=== PATIENT | male | born 1990 | race Caucasian/White ===

== ENCOUNTER 2021-04-06 22:57 | Inpatient (IN) | payer BC ==
[~2021-04-06] VITALS: Ht 177.8 cm; Wt 170.0 kg
[2021-04-07] MEDS ORDERED: diphenhydrAMINE 50MG/ML VIAL (J1200) IM ONE ×2 (00:05→19:15)
[2021-04-07] MEDS ORDERED: HALOPERIDOL 5MG/ML VIAL (J1630 PER 1) IM ONE ×2 (00:05→19:15)
[2021-04-07] MEDS ORDERED: LORazepam 2 MG/ML VIAL IM ONE ×2 (00:05→19:15)
[2021-04-07 00:22] LABS: HEMATOCRIT 43.9 % (42.0-52.0); HEMOGLOBIN 13.8 g/dl (13.5-17.5); MEAN CORPUSCULAR HEMOGLOBIN 26.6 pg (27.0-33.0); MEAN CORPUSCULAR HGB CONC 31.4 g/dl (32.0-36.5); MEAN CORPUSCULAR VOLUME 84.7 fl (80.0-96.0); PLATELET COUNT, AUTOMATED 336 10^3/uL (150-450); RED BLOOD COUNT 5.18 10^6/uL (4.30-6.10); WHITE BLOOD COUNT 8.8 10^3/uL (4.0-10.0)
[2021-04-07 01:01] LABS: ACETAMINOPHEN LEVEL < 2.0 UG/ML (10.0-30.0); ALBUMIN 3.7 GM/DL (3.2-5.2); ALT/SGPT 24 U/L (12-78); BILIRUBIN,DIRECT < 0.1 MG/DL (0.0-0.2); BILIRUBIN,TOTAL 0.2 MG/DL (0.2-1.0); BLOOD UREA NITROGEN 14 MG/DL (7-18); CALCIUM LEVEL 8.6 MG/DL (8.5-10.1); CARBON DIOXIDE LEVEL 29 MEQ/L (21-32); CHLORIDE LEVEL 106 MEQ/L (98-107); CREATININE FOR GFR 1.06 MG/DL (0.70-1.30); ETHYL ALCOHOL (ETHANOL) < 0.003 % (0.000-0.010); GLOMERULAR FILTRATION RATE > 60.0 (>60); GLUCOSE, FASTING 84 MG/DL (70-100); POTASSIUM SERUM 3.3 MEQ/L (3.5-5.1); SALICYLATE LEVEL 2.4 MG/DL (5.0-30.0); SODIUM LEVEL 142 MEQ/L (136-145); TOTAL PROTEIN 6.7 GM/DL (6.4-8.2)
[2021-04-07 02:00] LABS: AMPHETAMINES LEVEL URINE POSITIVE (NEGATIVE); BARBITURATES URINE NEGATIVE (NEGATIVE); BENZODIAZEPINES URINE NEGATIVE (NEGATIVE); CANNABINOIDS URINE POSITIVE (NEGATIVE); COCAINE METABOLITE URINE NEGATIVE (NEGATIVE); METHADONE URINE NEGATIVE (NEGATIVE); OPIATES URINE NEGATIVE (NEGATIVE); PHENCYCLIDINE URINE NEGATIVE (NEGATIVE)
[2021-04-07] MEDS ORDERED: HOME MED LIST COMPLETE! XX SCH (03:20)
[2021-04-08 12:28] LABS: RSV AMPLIFICATION NEGATIVE (NEGATIVE)
[2021-04-08] MEDS ORDERED: MAALOX 30 ML SUSP *UDC PO PRN (13:40)
[2021-04-08] MEDS ORDERED: traZODone 50 MG TAB PO PRN (13:40)
[2021-04-08] MEDS ORDERED: ACETAMINOPHEN TAB 650MG DOSE (2X325MG) PO PRN (13:40)
[2021-04-08] MEDS ORDERED: MOM 30ML SUSPENSION UDC PO PRN (13:40)
[2021-04-08 15:08] VITALS: BP 112/68
[2021-04-08] MEDS ORDERED: LORazepam 2 MG/ML VIAL IM STA (15:24)
[2021-04-08] MEDS ORDERED: diphenhydrAMINE 50MG/ML VIAL (J1200) IM STA (15:24)
[2021-04-08] MEDS ORDERED: HALOPERIDOL 5MG/ML VIAL (J1630 PER 1) IM STA (15:24)
[2021-04-08] MEDS ORDERED: haloperidoL 5 MG TAB PO PRN (16:05)
[2021-04-08] MEDS ORDERED: LORazepam 2 MG TAB PO PRN (16:05)
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
--- NOTE | 2021-04-09 10:56 | HPEPDOC ---
[facility] Medical History & Physical Date of Admission Apr 09, 2021 Date of Service: Apr 09, 2021 History and Physical Chief complaint: Who presented to the ER with suicidal thoughts History of present illness: Patient is a 30-year-old male who presented to the emergency room with complaints of suicidal thoughts. Patient was admitted to the inpatient mental health unit under the care of psychiatry. Hospitalist service was consulted for medical screening evaluation. Patient was seen and examined in his room with nursing staff. Patient denied any headache, nausea, vomiting, chest pain, shortness of breath, palpitations, cough, abdominal pain, constipation, diarrhea, or urinary discomfort. Reports that his appetite is fairly normal. Past Medical History: Denies any prior medical history Past Surgical History: Denies any prior surgical history Allergies: See below Medications: See below Family History: - No history of malignancies Social History: - Denies the use of alcohol; patient was that he is an active smoker. Reports that he has used drugs in the past - Denies recent travel or sick contacts Review of Systems: 10 point review of systems complete, all negative otherwise stated in HPI Physical exam: - Vitals: BP [112/68], HR [66], RR [16], Sat [98%RA], Temp [98.7F] - General: Lying in bed, Speaking in full sentences, AAOx3 - HEENT: NC, AT, PERRLA, EOMI - CVS: RRR, +S1S2 - Lungs: Fair air entry bilaterally, No appreciable wheezing / rales / rhonchi - Abdomen: Soft, Non-distended, Non-tender - Extremities: No lower extremity edema, No calf tenderness - Neuro: No focal motor or sensory deficit - Skin: No visible rashes Labs: See below Imaging: See below EKG: See below Assessment and Plan: Suicidal ideation - Patient was admitted to the inpatient mental health unit under the care of psychiatry - Currently being managed by psychiatry Hypokalemia - Will supplement No significant past medical history DVT prophylaxis - Will continue with early ambulation Female district ranger was present throughout the duration of this history and physical examination Thank you for this consultation. Hospitalist service will now sign off; please reconsult as needed Vital Signs Vital Signs Date Time Temp Pulse Resp B/P (MAP) Pulse Ox O2 Delivery O2 Flow Rate FiO2 04/08/21 15:08 98.7 66 16 112/68 (83) 98 Room Air Laboratory Data Labs 24H Laboratory Tests 2 04/08/21 11:07: Coronavirus (COVID-19)(PCR) NEGATIVE, Influenza Type A (RT-PCR) NEGATIVE, Influenza Type B (RT-PCR) NEGATIVE, Respiratory Syncytial Virus (PCR) NEGATIVE Home Medications No Active Prescriptions or Reported Meds Allergies Coded Allergies: No Known Allergies (Unverified , 04/07/21) YUKI RAMIREZ MD Apr 09, 2021 10:56
[2021-04-09] MEDS ORDERED: POTASSIUM CHLORIDE 10MEQ SR TABLET PO ONE (11:00)
[2021-04-09] MEDS ORDERED: NICO1DIS12 TOP (11:56)
--- NOTE | 2021-04-09 12:06 | MHPR ---
General Date: Apr 09, 2021 Time: 10:00 Post-Restraint Evaluation THE OUTCOME OF THE RESTRAINT: Patient calm and lying in bed. EFFECTIVENESS OF THE RESTRAINT: Mechanical and/or chemical: Positive ANY EVIDENCE THAT THE PATIENT WAS AFFECTED EMOTIONALLY: None indicated ANY NEED FOR COUNSELING/ASSISTANCE: None at this time CHANGES IN TREATMENT PLAN: Patient being seen with multiple staff present to ensure safety, as has been more calm today RECOMMENDATIONS FOR FUTURE INCIDENTS: Offer as needed's earlier TONI COLES MD Apr 09, 2021 12:06
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
== END 2021-04-09 17:27 | disposition home or self-care (01) | DRG 755 ==
LOC: M ED 22:57 → M ED INP 04-08 13:39 → M PSY 04-08 15:23
PROVIDERS: ADMIT Student in an Organized Health Care Education/Training Program; ATTEND Student in an Organized Health Care Education/Training Program
DX: F43.20 Adjustment disorder, unspecified (principal); R45.851 Suicidal ideations; F12.90 Cannabis use, unspecified, uncomplicated; F15.90 Other stimulant use, unspecified, uncomplicated; F17.200 Nicotine dependence, unspecified, uncomplicated; Z59.00 Homelessness unspecified; E87.6 Hypokalemia

== ENCOUNTER 2021-04-13 17:46 | Emergency (ER) | payer BC, OTHER ==
[~2021-04-13] VITALS: Ht 177.8 cm; Wt 70.5 kg
[~2021-04-13 17:46] MED LIST: NICO1DIS12 TOP
[2021-04-13 18:19] LABS: HEMATOCRIT 40.7 % (42.0-52.0); HEMOGLOBIN 12.8 g/dl (13.5-17.5); MEAN CORPUSCULAR HEMOGLOBIN 26.6 pg (27.0-33.0); MEAN CORPUSCULAR HGB CONC 31.4 g/dl (32.0-36.5); MEAN CORPUSCULAR VOLUME 84.4 fl (80.0-96.0); PLATELET COUNT, AUTOMATED 311 10^3/uL (150-450); RED BLOOD COUNT 4.82 10^6/uL (4.30-6.10); WHITE BLOOD COUNT 10.8 10^3/uL (4.0-10.0)
[2021-04-13 18:48] LABS: ACETAMINOPHEN LEVEL < 2.0 UG/ML (10.0-30.0); ALBUMIN 3.6 GM/DL (3.2-5.2); ALT/SGPT 30 U/L (12-78); BILIRUBIN,DIRECT < 0.1 MG/DL (0.0-0.2); BILIRUBIN,TOTAL 0.2 MG/DL (0.2-1.0); BLOOD UREA NITROGEN 11 MG/DL (7-18); CALCIUM LEVEL 8.9 MG/DL (8.5-10.1); CARBON DIOXIDE LEVEL 30 MEQ/L (21-32); CHLORIDE LEVEL 106 MEQ/L (98-107); CREATININE FOR GFR 0.82 MG/DL (0.70-1.30); ETHYL ALCOHOL (ETHANOL) < 0.003 % (0.000-0.010); GLOMERULAR FILTRATION RATE > 60.0 (>60); GLUCOSE, FASTING 94 MG/DL (70-100); SALICYLATE LEVEL 2.1 MG/DL (5.0-30.0); SODIUM LEVEL 143 MEQ/L (136-145); TOTAL PROTEIN 6.8 GM/DL (6.4-8.2)
[2021-04-13 19:29] LABS: AMPHETAMINES LEVEL URINE NEGATIVE (NEGATIVE); BARBITURATES URINE NEGATIVE (NEGATIVE); BENZODIAZEPINES URINE NEGATIVE (NEGATIVE); CANNABINOIDS URINE POSITIVE (NEGATIVE); COCAINE METABOLITE URINE NEGATIVE (NEGATIVE); METHADONE URINE NEGATIVE (NEGATIVE); OPIATES URINE NEGATIVE (NEGATIVE); PHENCYCLIDINE URINE NEGATIVE (NEGATIVE)
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
[2021-04-13] MEDS ORDERED: ACETAMINOPHEN 325 MG TAB PO ONE (22:10)
[2021-04-13] MEDS ORDERED: AUGM875T28 PO (22:11)
[2021-04-13] MEDS: AMOXICILLIN 500 MG CAP PO SCH (22:14)
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
[2021-04-14] MEDS: AMOXICILLIN 500 MG CAP PO SCH ×2 (13:07→19:58)
[2021-04-14] MEDS ORDERED: NICOTINE 21MG/24HR 1 EA TRANSDERMAL TD ONE (15:45)
[2021-04-14] MEDS ORDERED: NICO21DI37 TOP (16:20)
[2021-04-14] MEDS ORDERED: HOME MED LIST COMPLETE! XX SCH (16:25)
[2021-04-14 19:44] LABS: RSV AMPLIFICATION NEGATIVE (NEGATIVE)
[2021-04-14] MEDS ORDERED: ACETAMINOPHEN TAB 650MG DOSE (2X325MG) PO ONE (19:50)
[2021-04-14 22:00] VITALS: BP 125/57
[2021-04-15] MEDS ORDERED: ACETAMINOPHEN TAB 650MG DOSE (2X325MG) PO ONE (04:05)
[2021-04-15] MEDS: AMOXICILLIN 500 MG CAP PO SCH (09:00)
--- NOTE | 2021-04-15 18:20 | ECGEPIP ---
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
--- NOTE | 2021-04-15 19:14 | MHIPNPDOC ---
[facility] Progress Note Progress Note DATE OF SERVICE: 04/15/21 Interval HISTORY: Patient denies SI, intent or plan, denies HI, intent or plan. States left message on father's phone to get a reaction, out of anger and would never harm him or others. Reports he [facility] to stay [facility], as he cannot return to [facility], is on notice. Reports has alf goal of going to [place] to live there and he doesn't want to live in the area due to there being a lack of things to do. Does not meet criteria for involuntary admission at this time and refuses voluntary admission. VITAL SIGNS: See below. NEW TEST RESULTS: see below CURRENT MEDICATIONS: See below. MENTAL STATUS EXAMINATION: Patient is a 30-year old male, who is in no acute distress, unkempt, thin, improved eye contact Speech is has poor dentition and lisp, spontaneous, normal rate rhythm. Language skills are poor at baseline. Thought processes including: Circumstantial Thought content: Denies suicidal ideation, intent or plan. Denies homicidal ideation intent or plan.. Abstract reasoning, and computation: Fair. Description of associations: Fair. Description of abnormal or psychotic thoughts: Denies any hallucinations, paranoia or delusions, no symptoms of babita. Judgment: Poor, improving Insight: Good. Orientation to x3. Recent and remote memory: Intact. Attention span and concentration: Decreased. Language: Algerian Fund of knowledge: Below average based on interview Mood: "I'm alright" Affect: Irritable, non-dysthymic, non-anxious, full, smiles laughs about the situation DIAGNOSES: 1. Adjustment disorder ASSESSMENT/MANAGEMENT PLAN: Patient does not meet criteria for involuntary admission and seeks placement in [facility]. Denies SI, HI, hallucinations, delusions, symptoms of babita. Feels safe to leave. TIME SPENT: 15 minutes. Vital Signs Vital Signs Date Time Temp Pulse Resp B/P (MAP) Pulse Ox O2 Delivery O2 Flow Rate FiO2 04/14/21 22:00 98.3 92 16 125/57 (79) 98 04/14/21 15:07 Room Air Current Medications Current Medications Medications (Trade) Dose Ordered Sig/Alfredo Route PRN Reason Start Time Stop Time Status Last Admin Dose Admin Amoxicillin (Amoxicillin) 500 mg BID PO 04/13/21 21:00 04/15/21 14:44 DC 04/15/21 09:00 Home Med (Home Med List Complete!) ASDIRECTED XX 04/14/21 16:25 04/14/21 16:22 DC Allergies Coded Allergies: No Known Allergies (Unverified , 04/07/21) TONI COLES MD Apr 15, 2021 19:14
== END 2021-04-15 14:43 | disposition home or self-care (01) ==
LOC: M ED 17:46
DX: F43.20 Adjustment disorder, unspecified (principal); F17.210 Nicotine dependence, cigarettes, uncomplicated

== ENCOUNTER 2021-08-15 20:34 | Inpatient (IN) | payer MEDICAID, OTHER ==
[~2021-08-15 20:34] MED LIST changes: +AUGM875T28 PO; +NICO21DI37 TOP
[2021-08-15] MEDS ORDERED: NICOTINE 21MG/24HR 1 EA TRANSDERMAL TD ONE (21:00)
[2021-08-15 21:34] LABS: HEMATOCRIT 38.3 % (42.0-52.0); HEMOGLOBIN 12.1 g/dl (13.5-17.5); MEAN CORPUSCULAR HEMOGLOBIN 25.6 pg (27.0-33.0); MEAN CORPUSCULAR HGB CONC 31.6 g/dl (32.0-36.5); PLATELET COUNT, AUTOMATED 348 10^3/uL (150-450); RED BLOOD COUNT 4.73 10^6/uL (4.30-6.10); WHITE BLOOD COUNT 8.3 10^3/uL (4.0-10.0)
[2021-08-15 21:58] LABS: AMPHETAMINES LEVEL URINE POSITIVE (NEGATIVE); BARBITURATES URINE NEGATIVE (NEGATIVE); BENZODIAZEPINES URINE NEGATIVE (NEGATIVE); CANNABINOIDS URINE POSITIVE (NEGATIVE); COCAINE METABOLITE URINE NEGATIVE (NEGATIVE); METHADONE URINE NEGATIVE (NEGATIVE); OPIATES URINE NEGATIVE (NEGATIVE); PHENCYCLIDINE URINE NEGATIVE (NEGATIVE)
[2021-08-15 22:08] LABS: ACETAMINOPHEN LEVEL < 2.0 UG/ML (10.0-30.0); ALBUMIN 3.4 GM/DL (3.2-5.2); ALT/SGPT 20 U/L (12-78); BILIRUBIN,DIRECT < 0.1 MG/DL (0.0-0.2); BILIRUBIN,TOTAL 0.2 MG/DL (0.2-1.0); BLOOD UREA NITROGEN 13 MG/DL (7-18); CALCIUM LEVEL 8.6 MG/DL (8.5-10.1); CARBON DIOXIDE LEVEL 29 MEQ/L (21-32); CHLORIDE LEVEL 111 MEQ/L (98-107); ETHYL ALCOHOL (ETHANOL) < 0.003 % (0.000-0.010); GLOMERULAR FILTRATION RATE > 60.0 (>60); GLUCOSE, FASTING 76 MG/DL (70-100); POTASSIUM SERUM 4.3 MEQ/L (3.5-5.1); SALICYLATE LEVEL 2.2 MG/DL (5.0-30.0); SODIUM LEVEL 143 MEQ/L (136-145); THYROID STIMULATING HORMONE 0.724 uIU/ML (0.358-3.740); TOTAL PROTEIN 6.3 GM/DL (6.4-8.2)
[2021-08-15] MEDS ORDERED: HOME MED LIST COMPLETE! XX SCH (22:10)
[2021-08-15] MEDS ORDERED: OLANZapine ORAL DISINTEGRATING TAB 5MG PO PRN (23:55)
[2021-08-15] MEDS ORDERED: ACETAMINOPHEN TAB 650MG DOSE (2X325MG) PO PRN (23:55)
[2021-08-15] MEDS ORDERED: traZODone 50 MG TAB PO PRN (23:55)
[2021-08-15] MEDS ORDERED: MOM 30ML SUSPENSION UDC PO PRN (23:55)
[2021-08-15] MEDS ORDERED: MAALOX 30 ML SUSP *UDC PO PRN (23:55)
[2021-08-16 02:02] VITALS: BP 141/92
[2021-08-16] MEDS: NICOTINE 21MG/24HR 1 EA TRANSDERMAL TD SCH (16:35)
[2021-08-16 18:23] VITALS: BP 131/68
[2021-08-17] MEDS: NICOTINE 21MG/24HR 1 EA TRANSDERMAL TD SCH (11:53)
[2021-08-17] MEDS: OLANZapine ORAL DISINTEGRATING TAB 5MG PO SCH ×2 (14:55→21:21)
[2021-08-17 18:48] VITALS: BP 116/65
[2021-08-18 06:25] VITALS: BP 113/74
[2021-08-18] MEDS: OLANZapine ORAL DISINTEGRATING TAB 5MG PO SCH ×2 (09:00→20:17)
[2021-08-18] MEDS: NICOTINE 21MG/24HR 1 EA TRANSDERMAL TD SCH ×2 (09:00→18:30)
[2021-08-18 18:24] VITALS: BP 131/72
[2021-08-19] MEDS: OLANZapine ORAL DISINTEGRATING TAB 5MG PO SCH (09:00)
[2021-08-19] MEDS: NICOTINE 21MG/24HR 1 EA TRANSDERMAL TD SCH (09:21)
== END 2021-08-19 12:31 | disposition home or self-care (01) | DRG 755 ==
LOC: M ED 20:34 → M ED INP 23:51 → M PSY 08-16 01:53
PROVIDERS: ADMIT Psychiatry & Neurology Psychiatry; ATTEND Psychiatry & Neurology Psychiatry
DX: F43.25 Adjustment disorder with mixed disturbance of emotions and conduct (principal); F15.90 Other stimulant use, unspecified, uncomplicated; F12.90 Cannabis use, unspecified, uncomplicated; F17.200 Nicotine dependence, unspecified, uncomplicated; F60.2 Antisocial personality disorder; Z56.0 Unemployment, unspecified; Z59.00 Homelessness unspecified; R45.851 Suicidal ideations; R45.850 Homicidal ideations; Z20.822 Contact with and (suspected) exposure to COVID-19; Z91.19 Patient's noncompliance with other medical treatment and regimen

== ENCOUNTER 2021-08-31 09:58 | Emergency (ER) | payer MEDICAID | END 2021-08-31 12:18 | disposition home or self-care (01) | LOC: M ED 09:58 | DX: Z59.00 Homelessness unspecified (principal); F32.9 Major depressive disorder, single episode, unspecified; F19.10 Other psychoactive substance abuse, uncomplicated; F17.200 Nicotine dependence, unspecified, uncomplicated; F12.10 Cannabis abuse, uncomplicated; F10.10 Alcohol abuse, uncomplicated ==

== ENCOUNTER 2023-11-13 05:34 | Inpatient (IN) | payer MEDICAID, OTHER, SELFPAY ==
[~2023-11-13] VITALS: Ht 177.8 cm; Wt 82.7 kg
[2023-11-13 06:52] LABS: HEMATOCRIT 43.2 % (42.0-52.0); HEMOGLOBIN 13.9 g/dl (13.5-17.5); MEAN CORPUSCULAR HEMOGLOBIN 26.3 pg (27.0-33.0); MEAN CORPUSCULAR HGB CONC 32.2 g/dl (32.0-36.5); MEAN CORPUSCULAR VOLUME 81.8 fl (80.0-96.0); PLATELET COUNT, AUTOMATED 261 10^3/uL (150-450); RED BLOOD COUNT 5.28 10^6/uL (4.30-6.10); WHITE BLOOD COUNT 6.7 10^3/uL (4.0-10.0)
[2023-11-13 07:11] LABS: AMPHETAMINES LEVEL URINE NEGATIVE (NEGATIVE); BARBITURATES URINE NEGATIVE (NEGATIVE); BENZODIAZEPINES URINE NEGATIVE (NEGATIVE); COCAINE METABOLITE URINE NEGATIVE (NEGATIVE); METHADONE URINE NEGATIVE (NEGATIVE); OPIATES URINE NEGATIVE (NEGATIVE); PHENCYCLIDINE URINE NEGATIVE (NEGATIVE)
[2023-11-13 07:13] LABS: ETHYL ALCOHOL (ETHANOL) 0.004 % (0.000-0.010)
[2023-11-13 07:15] LABS: ALKALINE PHOSPHATASE 64 U/L (46-116); ALT/SGPT 25 U/L (7.0-40); AST/SGOT 17 U/L (<34); BILIRUBIN,DIRECT < 0.1 MG/DL (<0.4); BILIRUBIN,TOTAL 0.4 MG/DL (0.3-1.2); BLOOD UREA NITROGEN 19 MG/DL (9-23); CALCIUM LEVEL 9.6 MG/DL (8.5-10.1); CANNABINOIDS URINE POSITIVE (NEGATIVE); CARBON DIOXIDE LEVEL 28 MMOL/L (20-31); CHLORIDE LEVEL 106 MMOL/L (98-107); CREATININE FOR GFR 0.78 MG/DL (0.70-1.30); GLOMERULAR FILTRATION RATE > 60.0 (>60); GLUCOSE, FASTING 85 MG/DL (60-100); POTASSIUM SERUM 4.2 MMOL/L (3.5-5.1); SALICYLATE LEVEL < 3.0 MG/DL (<30); SODIUM LEVEL 140 MMOL/L (136-145); TOTAL PROTEIN 6.4 G/DL (5.7-8.2)
[2023-11-13 07:17] LABS: THYROID STIMULATING HORMONE 1.769 uIU/ML (0.55-4.78)
[2023-11-13] MEDS ORDERED: HOME MED LIST COMPLETE! XX SCH (09:20)
[2023-11-13] MEDS ORDERED: MOM 30ML SUSPENSION UDC PO PRN (16:10)
[2023-11-13] MEDS ORDERED: OLANZapine ORAL DISINTEGRATING TAB 5MG PO PRN (16:10)
[2023-11-13] MEDS ORDERED: ACETAMINOPHEN TAB 650MG DOSE (2X325MG) PO PRN (16:10)
[2023-11-13] MEDS ORDERED: IBUPROFEN 400MG TAB PO PRN (16:10)
[2023-11-13] MEDS ORDERED: NICOTINE 21MG/24HR 1 EA TRANSDERMAL TD PRN (16:10)
[2023-11-13] MEDS ORDERED: MAALOX 30 ML SUSP *UDC PO PRN (16:10)
[2023-11-13 18:21] VITALS: BP 101/59; TEMP 98.8; O2SAT 99
[2023-11-13] MEDS: NICOTINE POLACRILEX 2 MG GUM PO PRN (19:10)
[2023-11-13] MEDS ORDERED: NICOTINE POLACRILEX 2 MG GUM PO PRN (19:10)
[2023-11-13] MEDS: traZODone 50 MG TAB PO PRN (21:30)
[2023-11-14 06:24] VITALS: BP 96/52; TEMP 97; O2SAT 100
[2023-11-14] MEDS: NICOTINE 21MG/24HR 1 EA TRANSDERMAL TD PRN (10:53)
[2023-11-14] MEDS: diphenhydrAMINE 25MG CAP PO PRN (22:40)
[2023-11-14] MEDS: LORazepam 1 MG TAB PO PRN (22:53)
[2023-11-15] MEDS: HALOPERIDOL LACTATE 5MG/ML VIAL IM STA ×2 (00:21→19:29)
[2023-11-15] MEDS: diphenhydrAMINE 50MG/ML VIAL IM STA ×2 (00:21→19:29)
[2023-11-15] MEDS: LORazepam 2 MG/ML 1ML VIAL IM STA ×2 (00:21→19:29)
[2023-11-16] MEDS ORDERED: LORazepam 2 MG TAB PO PRN (09:05)
[2023-11-16] MEDS ORDERED: diphenhydrAMINE 50MG CAP PO PRN (09:05)
[2023-11-16 17:52] VITALS: BP 129/68; TEMP 97.3
== END 2023-11-17 11:18 | disposition home or self-care (01) | DRG 752 ==
LOC: M ED 05:34 → M ED INP 16:10 → M PSY 17:34
PROVIDERS: ADMIT Student in an Organized Health Care Education/Training Program; ATTEND Student in an Organized Health Care Education/Training Program
DX: F60.2 Antisocial personality disorder (principal); F32.A Depression, unspecified; R45.851 Suicidal ideations; F17.210 Nicotine dependence, cigarettes, uncomplicated; F15.90 Other stimulant use, unspecified, uncomplicated; F12.90 Cannabis use, unspecified, uncomplicated; Z78.1 Physical restraint status; Z76.5 Malingerer [conscious simulation]; Z59.00 Homelessness unspecified; Z56.0 Unemployment, unspecified; Z65.3 Problems related to other legal circumstances

== ENCOUNTER 2023-11-24 18:32 | Inpatient (IN) | payer MEDICAID ==
[~2023-11-24] VITALS: Ht 177.8 cm; Wt 81.6 kg
[2023-11-24 19:27] LABS: HEMATOCRIT 45.1 % (42.0-52.0); HEMOGLOBIN 14.9 g/dl (13.5-17.5); MEAN CORPUSCULAR HEMOGLOBIN 25.9 pg (27.0-33.0); MEAN CORPUSCULAR VOLUME 78.3 fl (80.0-96.0); PLATELET COUNT, AUTOMATED 306 10^3/uL (150-450); RED BLOOD COUNT 5.76 10^6/uL (4.30-6.10); WHITE BLOOD COUNT 6.9 10^3/uL (4.0-10.0)
[2023-11-24 19:45] LABS: ETHYL ALCOHOL (ETHANOL) < 0.003 % (0.000-0.010)
[2023-11-24 19:46] LABS: SALICYLATE LEVEL < 3.0 MG/DL (<30)
[2023-11-24 19:47] LABS: ALBUMIN 4.8 G/DL (3.2-5.2); ALKALINE PHOSPHATASE 73 U/L (46-116); ALT/SGPT 35 U/L (7.0-40); AST/SGOT 25 U/L (<34); BILIRUBIN,DIRECT 0.4 MG/DL (<0.4); BILIRUBIN,TOTAL 1.1 MG/DL (0.3-1.2); BLOOD UREA NITROGEN 20 MG/DL (9-23); CALCIUM LEVEL 10.2 MG/DL (8.5-10.1); CARBON DIOXIDE LEVEL 23 MMOL/L (20-31); CHLORIDE LEVEL 109 MMOL/L (98-107); CREATININE FOR GFR 0.98 MG/DL (0.70-1.30); GLOMERULAR FILTRATION RATE > 60.0 (>60); GLUCOSE, FASTING 129 MG/DL (60-100); POTASSIUM SERUM 3.7 MMOL/L (3.5-5.1); SODIUM LEVEL 144 MMOL/L (136-145); TOTAL PROTEIN 7.6 G/DL (5.7-8.2)
[2023-11-24 19:49] LABS: THYROID STIMULATING HORMONE 1.514 uIU/ML (0.55-4.78)
[2023-11-24 20:08] LABS: BARBITURATES URINE NEGATIVE (NEGATIVE); BENZODIAZEPINES URINE NEGATIVE (NEGATIVE); COCAINE METABOLITE URINE NEGATIVE (NEGATIVE); METHADONE URINE NEGATIVE (NEGATIVE); OPIATES URINE NEGATIVE (NEGATIVE); PHENCYCLIDINE URINE NEGATIVE (NEGATIVE)
[2023-11-24 20:14] LABS: AMPHETAMINES LEVEL URINE POSITIVE (NEGATIVE); CANNABINOIDS URINE POSITIVE (NEGATIVE)
[2023-11-24] MEDS ORDERED: HOME MED LIST COMPLETE! XX SCH (23:00)
[2023-11-25] MEDS: NICOTINE 21MG/24HR 1 EA TRANSDERMAL TD ONE (13:31)
[2023-11-25] MEDS ORDERED: IBUPROFEN 400MG TAB PO PRN (16:00)
[2023-11-25] MEDS ORDERED: MOM 30ML SUSPENSION UDC PO PRN (16:00)
[2023-11-25 17:53] VITALS: BP 106/62; TEMP 97.3; O2SAT 97
[2023-11-25] MEDS: ACETAMINOPHEN TAB 650MG DOSE (2X325MG) PO PRN (21:58)
[2023-11-26 18:26] VITALS: BP 111/92; TEMP 97.8; O2SAT 97
[2023-11-27] MEDS: OLANZapine 5 MG TAB PO SCH (09:00)
[2023-11-27] MEDS: NICOTINE 21MG/24HR 1 EA TRANSDERMAL TD PRN (09:30)
[2023-11-27 15:42] VITALS: BP 110/58; TEMP 97.7; O2SAT 95
[2023-11-28 06:00] VITALS: BP 137/60; TEMP 97.7; O2SAT 98
[2023-11-29 18:14] VITALS: BP 142/82; TEMP 98; O2SAT 98
[2023-11-30 18:43] VITALS: BP 119/73; TEMP 97.8
[2023-12-01] MEDS: OLANZapine 5 MG TAB PO SCH (10:26)
[2023-12-01 16:19] VITALS: BP 147/83; TEMP 97.5; O2SAT 98
[2023-12-01] MEDS: OLANZapine 10 MG TAB PO SCH (20:55)
[2023-12-02 06:25] VITALS: BP 101/58; TEMP 97.4; O2SAT 100
[2023-12-02 06:36] VITALS: BP 142/72; TEMP 97.9; O2SAT 98
[2023-12-02 18:17] VITALS: BP 105/58; TEMP 97.2
[2023-12-03 06:00] VITALS: BP 104/54; TEMP 97.3; O2SAT 97
[2023-12-03 17:10] VITALS: BP 111/63; TEMP 97.5; O2SAT 100
[2023-12-04 06:52] VITALS: BP 99/58; TEMP 97.5; O2SAT 99
[2023-12-04] MEDS: MAALOX 30 ML SUSP *UDC PO PRN (11:58)
[2023-12-04 15:35] VITALS: BP 114/55; TEMP 97.3; O2SAT 98
[2023-12-05 16:18] VITALS: BP 122/59; TEMP 98.1
[2023-12-05] MEDS: diphenhydrAMINE 25MG CAP PO PRN (20:02)
[2023-12-05] MEDS: traZODone 50 MG TAB PO PRN (20:03)
[2023-12-06 21:00] VITALS: BP 128/76; TEMP 97.1; O2SAT 99
[2023-12-06] MEDS: HALOPERIDOL LACTATE 5MG/ML VIAL IM STA ×2 (21:19→21:45)
[2023-12-06] MEDS: LORazepam 2 MG/ML 1ML VIAL IM STA (21:19)
[2023-12-07] MEDS ORDERED: OLAN1TAB16 PO (11:55)
[2023-12-07] MEDS ORDERED: TRAZ-252 PO (11:55)
[2023-12-07] MEDS ORDERED: OLAN1TAB20 PO (11:55)
== END 2023-12-07 14:14 | disposition home or self-care (01) | DRG 776 ==
LOC: M ED 18:32 → M ED INP 11-25 15:58 → M PSY 11-25 17:35
PROVIDERS: ADMIT Student in an Organized Health Care Education/Training Program; ATTEND Student in an Organized Health Care Education/Training Program
DX: F15.950 Other stimulant use, unspecified with stimulant-induced psychotic disorder with delusions (principal); Z78.1 Physical restraint status; F29 Unspecified psychosis not due to a substance or known physiological condition; R45.850 Homicidal ideations; F12.90 Cannabis use, unspecified, uncomplicated; F60.2 Antisocial personality disorder; F17.210 Nicotine dependence, cigarettes, uncomplicated; F17.290 Nicotine dependence, other tobacco product, uncomplicated; Z81.1 Family history of alcohol abuse and dependence; Z65.3 Problems related to other legal circumstances; Z56.0 Unemployment, unspecified; Z59.00 Homelessness unspecified

== ENCOUNTER 2023-12-10 22:50 | Inpatient (IN) | payer MEDICAID ==
[~2023-12-10] VITALS: Ht 177.8 cm; Wt 81.8 kg
[~2023-12-10 22:50] MED LIST changes: +OLAN1TAB16 PO; +OLAN1TAB20 PO; +TRAZ-252 PO
[2023-12-10 23:35] LABS: HEMATOCRIT 40.8 % (42.0-52.0); HEMOGLOBIN 13.4 g/dl (13.5-17.5); MEAN CORPUSCULAR HEMOGLOBIN 26.1 pg (27.0-33.0); MEAN CORPUSCULAR HGB CONC 32.8 g/dl (32.0-36.5); MEAN CORPUSCULAR VOLUME 79.5 fl (80.0-96.0); PLATELET COUNT, AUTOMATED 258 10^3/uL (150-450); RED BLOOD COUNT 5.13 10^6/uL (4.30-6.10); WHITE BLOOD COUNT 7.2 10^3/uL (4.0-10.0)
[2023-12-10] MEDS ORDERED: HOME MED LIST COMPLETE! XX SCH (23:35)
[2023-12-10 23:57] LABS: BARBITURATES URINE NEGATIVE (NEGATIVE); BENZODIAZEPINES URINE NEGATIVE (NEGATIVE)
[2023-12-10 23:58] LABS: COCAINE METABOLITE URINE NEGATIVE (NEGATIVE); METHADONE URINE NEGATIVE (NEGATIVE); OPIATES URINE NEGATIVE (NEGATIVE); PHENCYCLIDINE URINE NEGATIVE (NEGATIVE)
[2023-12-10 23:59] LABS: ETHYL ALCOHOL (ETHANOL) < 0.003 % (0.000-0.010)
[2023-12-11 00:01] LABS: ALBUMIN 4.5 G/DL (3.2-5.2); ALKALINE PHOSPHATASE 69 U/L (46-116); ALT/SGPT 37 U/L (7.0-40); AMPHETAMINES LEVEL URINE POSITIVE (NEGATIVE); AST/SGOT 32 U/L (<34); BILIRUBIN,DIRECT 0.3 MG/DL (<0.4); BILIRUBIN,TOTAL 1.2 MG/DL (0.3-1.2); BLOOD UREA NITROGEN 25 MG/DL (9-23); CALCIUM LEVEL 9.4 MG/DL (8.5-10.1); CANNABINOIDS URINE POSITIVE (NEGATIVE); CARBON DIOXIDE LEVEL 24 MMOL/L (20-31); CHLORIDE LEVEL 104 MMOL/L (98-107); CREATININE FOR GFR 0.92 MG/DL (0.70-1.30); GLOMERULAR FILTRATION RATE > 60.0 (>60); GLUCOSE, FASTING 101 MG/DL (60-100); POTASSIUM SERUM 3.4 MMOL/L (3.5-5.1); SALICYLATE LEVEL < 3.0 MG/DL (<30); SODIUM LEVEL 138 MMOL/L (136-145); TOTAL PROTEIN 7.1 G/DL (5.7-8.2)
[2023-12-11 00:03] LABS: THYROID STIMULATING HORMONE 2.716 uIU/ML (0.55-4.78)
[2023-12-11] MEDS: LORazepam 2 MG TAB PO ONE (01:45)
[2023-12-11] MEDS: NICOTINE 21MG/24HR 1 EA TRANSDERMAL TD ONE (04:39)
[2023-12-11] MEDS: NICOTINE 14 MG/24 HR TRANSDERMAL TD SCH (09:00)
[2023-12-11] MEDS: THIAMINE 100 MG TAB PO SCH (09:00)
[2023-12-11] MEDS ORDERED: LORazepam 2 MG TAB PO PRN (13:05)
[2023-12-11] MEDS ORDERED: MAALOX 30 ML SUSP *UDC PO PRN (13:05)
[2023-12-11] MEDS ORDERED: MOM 30ML SUSPENSION UDC PO PRN (13:05)
[2023-12-11 17:19] VITALS: BP 135/98; TEMP 97; O2SAT 96
[2023-12-11 18:47] VITALS: BP 135/98
[2023-12-11] MEDS: FOLIC ACID 1MG TAB PO SCH (20:34)
[2023-12-11] MEDS: MULTIVITAMINS/MINERALS THERAP 1 TAB PO SCH (20:34)
[2023-12-11] MEDS: traZODone 50 MG TAB PO PRN (21:27)
[2023-12-11] MEDS: diphenhydrAMINE 25MG CAP PO PRN (21:27)
[2023-12-12 09:00] VITALS: BP 135/98; TEMP 97; O2SAT 96
[2023-12-12] MEDS: OLANZapine 5 MG TAB PO SCH (09:00)
[2023-12-12 12:00] VITALS: BP 108/60
[2023-12-12 16:12] VITALS: BP 108/60; TEMP 98.3; O2SAT 100
[2023-12-13 14:00] VITALS: BP 123/61
[2023-12-13 15:14] VITALS: BP 123/61; TEMP 97.4; O2SAT 97
[2023-12-13] MEDS: ACETAMINOPHEN TAB 650MG DOSE (2X325MG) PO PRN (18:16)
[2023-12-13] MEDS: IBUPROFEN 400MG TAB PO PRN (20:34)
[2023-12-14 17:46] VITALS: BP 134/63; TEMP 97.4; O2SAT 100
[2023-12-15] MEDS ORDERED: OLAN1TAB16 PO (08:31)
== END 2023-12-15 09:30 | DRG 776 ==
LOC: M ED 22:50 → M ED INP 12-11 13:03 → M PSY 12-11 17:38
PROVIDERS: ADMIT Student in an Organized Health Care Education/Training Program; ATTEND Student in an Organized Health Care Education/Training Program
DX: F15.950 Other stimulant use, unspecified with stimulant-induced psychotic disorder with delusions (principal); F60.2 Antisocial personality disorder; F17.200 Nicotine dependence, unspecified, uncomplicated; F12.90 Cannabis use, unspecified, uncomplicated; F29 Unspecified psychosis not due to a substance or known physiological condition; R45.851 Suicidal ideations; Z56.0 Unemployment, unspecified; Z65.3 Problems related to other legal circumstances

== ENCOUNTER 2024-01-08 02:20 | Emergency (ER) | payer MEDICAID ==
[2024-01-08 15:05] LABS: BLOOD UREA NITROGEN 13 MG/DL (9-23); CHLORIDE LEVEL 110 MMOL/L (98-107); CREATININE FOR GFR 0.87 MG/DL (0.70-1.30); GLOMERULAR FILTRATION RATE > 60.0 (>60); GLUCOSE, FASTING 89 MG/DL (60-100); POTASSIUM SERUM 3.7 MMOL/L (3.5-5.1); SODIUM LEVEL 141 MMOL/L (136-145)
[2024-01-08 15:06] LABS: CALCIUM LEVEL 9.5 MG/DL (8.5-10.1); CARBON DIOXIDE LEVEL 24.5 MMOL/L (20-31)
[2024-01-08 15:11] LABS: HEMATOCRIT 41.6 % (42.0-52.0); HEMOGLOBIN 13.8 g/dl (13.5-17.5); MEAN CORPUSCULAR HGB CONC 33.2 g/dl (32.0-36.5); MEAN CORPUSCULAR VOLUME 78.5 fl (80.0-96.0); PLATELET COUNT, AUTOMATED 358 10^3/uL (150-450); WHITE BLOOD COUNT 7.2 10^3/uL (4.0-10.0)
[2024-01-08 15:41] LABS: ALBUMIN 4.4 G/DL (3.2-5.2); ALKALINE PHOSPHATASE 68 U/L (46-116); ALT/SGPT 24 U/L (7.0-40); AST/SGOT 16 U/L (<34); BILIRUBIN,DIRECT 0.3 MG/DL (<0.4); BILIRUBIN,TOTAL 0.9 MG/DL (0.3-1.2); ETHYL ALCOHOL (ETHANOL) 0.004 % (0.000-0.010); SALICYLATE LEVEL < 3.0 MG/DL (<30); THYROID STIMULATING HORMONE 0.888 uIU/ML (0.55-4.78)
[2024-01-08 16:16] LABS: BARBITURATES URINE NEGATIVE (NEGATIVE)
[2024-01-08 16:18] LABS: BENZODIAZEPINES URINE NEGATIVE (NEGATIVE); COCAINE METABOLITE URINE NEGATIVE (NEGATIVE); METHADONE URINE NEGATIVE (NEGATIVE); OPIATES URINE NEGATIVE (NEGATIVE); PHENCYCLIDINE URINE NEGATIVE (NEGATIVE)
[2024-01-08 16:27] LABS: AMPHETAMINES LEVEL URINE POSITIVE (NEGATIVE); CANNABINOIDS URINE POSITIVE (NEGATIVE)
[2024-01-08 20:52] VITALS: BP 152/82; TEMP 97.7; O2SAT 98
== END 2024-01-08 20:54 | disposition home or self-care (01) ==
LOC: M ED 02:20
DX: F19.159 Other psychoactive substance abuse with psychoactive substance-induced psychotic disorder, unspecified (principal); Z79.899 Other long term (current) drug therapy

== ENCOUNTER 2025-02-11 21:36 | Inpatient (IN) | payer MEDICAID, OTHER ==
[2025-02-11 22:01] LABS: PLATELET COUNT, AUTOMATED 325 10^3/uL (150-450)
[2025-02-11 22:25] LABS: ETHYL ALCOHOL (ETHANOL) < 0.003 % (0.000-0.010)
[2025-02-11 22:26] LABS: SALICYLATE LEVEL < 3.0 MG/DL (<30)
[2025-02-11 22:27] LABS: ALT/SGPT 22 U/L (7.0-40); AST/SGOT 35 U/L (<34); CALCIUM LEVEL 10.3 MG/DL (8.5-10.1); CARBON DIOXIDE LEVEL 24 MMOL/L (20-31); CHLORIDE LEVEL 103 MMOL/L (98-107); CREATININE FOR GFR 1.04 MG/DL (0.70-1.30); GLOMERULAR FILTRATION RATE > 90.0 (>60); POTASSIUM SERUM 3.7 MMOL/L (3.5-5.1); SODIUM LEVEL 144 MMOL/L (136-145)
[2025-02-11] MEDS: NICOTINE 21 MG/24 HR 1 EA TRANSDERMAL TD ONE (23:07)
[2025-02-11 23:15] LABS: BARBITURATES URINE NEGATIVE (NEGATIVE); BENZODIAZEPINES URINE NEGATIVE (NEGATIVE); COCAINE METABOLITE URINE NEGATIVE (NEGATIVE); METHADONE URINE NEGATIVE (NEGATIVE); OPIATES URINE NEGATIVE (NEGATIVE); PHENCYCLIDINE URINE NEGATIVE (NEGATIVE)
[2025-02-11 23:17] LABS: AMPHETAMINES LEVEL URINE POSITIVE (NEGATIVE); CANNABINOIDS URINE POSITIVE (NEGATIVE)
[2025-02-12] MEDS ORDERED: HOME MED LIST COMPLETE! XX SCH (00:20)
[2025-02-12] MEDS ORDERED: IBUPROFEN 400 MG TAB PO PRN (01:15)
[2025-02-12] MEDS ORDERED: MOM 30 ML SUSPENSION UDC PO PRN (01:15)
[2025-02-12] MEDS ORDERED: OLANZapine ORAL DISINTEGRATING TAB 5MG PO PRN (01:15)
[2025-02-12] MEDS ORDERED: MAALOX 30 ML SUSP *UDC PO PRN (01:15)
[2025-02-12] MEDS: diphenhydrAMINE 50 MG/ML VIAL IM STA (02:52)
[2025-02-12] MEDS: HALOPERIDOL LACTATE 5 MG/ML VIAL IM STA (02:52)
[2025-02-12 04:01] VITALS: BP 118/72; TEMP 97.7; O2SAT 99
[2025-02-12 15:04] VITALS: BP 124/66; TEMP 98; O2SAT 99
[2025-02-12] MEDS: NICOTINE 21 MG/24 HR 1 EA TRANSDERMAL TD SCH (15:24)
[2025-02-12] MEDS: OLANZapine 5 MG TAB PO SCH (20:42)
[2025-02-13 06:37] VITALS: BP 151/75; TEMP 97.6; O2SAT 100
[2025-02-13 16:16] VITALS: BP 135/88; TEMP 97.5; O2SAT 98
[2025-02-13] MEDS: OLANZapine 10 MG TAB PO SCH (20:42)
[2025-02-14 06:18] VITALS: BP 114/72; TEMP 97.3; O2SAT 100
[2025-02-14 15:43] VITALS: BP 140/88; TEMP 97.5; O2SAT 98
[2025-02-14] MEDS: HALOPERIDOL LACTATE 5 MG/ML VIAL IM STA (22:06)
[2025-02-14] MEDS: diphenhydrAMINE 50 MG/ML VIAL IM STA (22:06)
[2025-02-15] MEDS: OLANZapine INTRAMUSCULAR 10MG VIAL IM STA (00:13)
[2025-02-15 01:10] VITALS: BP 120/85; TEMP 98.5; O2SAT 99
[2025-02-15] MEDS ORDERED: HALOPERIDOL 5 MG TAB PO PRN (12:20)
[2025-02-15 14:56] VITALS: BP 105/61; TEMP 98.2; O2SAT 98
[2025-02-15] MEDS: CHLORPROMAZINE 50 MG/2 ML IM STA (20:42)
[2025-02-15] MEDS: diphenhydrAMINE 50 MG/ML VIAL IM STA (20:42)
[2025-02-16] MEDS ORDERED: PILL CUTTER 1 EACH XX PRN (08:35)
[2025-02-16] MEDS: LORazepam 1 MG TAB PO SCH (09:00)
[2025-02-16] MEDS: OLANZapine 5 MG TAB PO SCH (09:00)
[2025-02-16 16:04] VITALS: BP 110/61; TEMP 97.7; O2SAT 97
[2025-02-16] MEDS: diphenhydrAMINE 50 MG/ML VIAL IM STA (17:16)
[2025-02-16] MEDS: CHLORPROMAZINE 50 MG/2 ML IM STA (17:16)
[2025-02-16] MEDS: traZODone 50 MG TAB PO PRN (21:31)
[2025-02-17] MEDS: ACETAMINOPHEN 325 MG TAB PO PRN (09:23)
[2025-02-17] MEDS: OLANZapine ORAL DISINTEGRATING TAB 5MG PO PRN (14:32)
[2025-02-17 14:58] VITALS: BP 103/59; TEMP 98.6; O2SAT 97
[2025-02-18 08:51] VITALS: BP 123/63; TEMP 97.6
[2025-02-18] MEDS: diphenhydrAMINE 50 MG/ML VIAL IM STA ×2 (09:01→14:14)
[2025-02-18] MEDS: HALOPERIDOL LACTATE 5 MG/ML VIAL IM STA ×2 (09:01→14:14)
[2025-02-18] MEDS ORDERED: MIDAZOLAM 5 MG/ML 1 ML VIAL As Ordered ONE (14:05)
== END 2025-02-18 14:41 | disposition other institution (70) | DRG 753 ==
LOC: M ED 21:36 → M ED INP 02-12 01:13 → M PSY 02-12 01:58
PROVIDERS: ADMIT Psychiatry & Neurology Neurology; ATTEND Psychiatry & Neurology Neurology
DX: F31.2 Bipolar disorder, current episode manic severe with psychotic features (principal); F15.20 Other stimulant dependence, uncomplicated; F12.20 Cannabis dependence, uncomplicated; F41.1 Generalized anxiety disorder; F60.2 Antisocial personality disorder; F17.290 Nicotine dependence, other tobacco product, uncomplicated; Z59.00 Homelessness unspecified; Z56.0 Unemployment, unspecified; Z78.1 Physical restraint status; T14.91XA Suicide attempt, initial encounter; T71.162A Asphyxiation due to hanging, intentional self-harm, initial encounter; S19.9XXA Unspecified injury of neck, initial encounter; Y92.230 Patient room in hospital as the place of occurrence of the external cause

== ENCOUNTER 2025-02-18 14:46 | Inpatient (IN) | payer OTHER ==
[~2025-02-18] VITALS: Ht 177.8 cm; Wt 77.7 kg
[2025-02-18] VITALS (30 sets, daily range): BP systolic 86–165; BP diastolic 55–109; TEMP 98–98.2; O2SAT 97–100
[2025-02-18] MEDS: MIDAZOLAM INJ 2 MG/2 ML VIAL IV STA ×5 (14:30→15:32)
[2025-02-18] MEDS ORDERED: MIDAZOLAM 5 MG/ML 1 ML VIAL As Ordered ONE (14:58)
[2025-02-18] MEDS: ETOMIDATE 20 MG/10 ML VIAL IV STA (15:00)
[2025-02-18] MEDS: ROCURONIUM BROMIDE 50MG/5ML VIAL IV SCH (15:01)
[2025-02-18] MEDS ORDERED: MIDAZOLAM INJ 2 MG/2 ML VIAL IV STA (15:18)
[2025-02-18] MEDS ORDERED: MIDAZOLAM 100MG/100ML-0.9%NACL 100 MG in IV 1 EA IV SCH (15:20)
[2025-02-18] MEDS: MIDAZOLAM 100MG/100ML-0.9%NACL 100 MG in IV 1 EA IV SCH (15:23)
[2025-02-18] MEDS ORDERED: PROPOFOL 1,000 MG/100 ML VIAL As Ordered ONE (15:34)
[2025-02-18] MEDS ORDERED: MIDAZOLAM 5 MG/ML 1 ML VIAL IV STA (15:35)
[2025-02-18] MEDS ORDERED: NOREPINEPHRINE 4MG IN D5 250ML 4 MG in IV 1 EA IV SCH (15:35)
[2025-02-18] MEDS ORDERED: FENTANYL DRIP LOCK BOX KEY 1 EACH XX PRN (15:55)
[2025-02-18] MEDS: fentaNYL CITRATE/NaCl 1,000 MCG in IV 1 EA IV SCH (16:03)
[2025-02-18] MEDS: D5W/LR 1,000 ML IV SCH (17:46)
[2025-02-18 17:53] LABS: BASO # 0.1 10^3/uL (0.0-0.2); BASO % 0.8 % (0.0-1.0); EOS # 0.3 10^3/uL (0.0-0.5); EOS % 5.2 % (0.0-3.0); LYMPH # 1.7 10^3/uL (1.5-5.0); LYMPH % 26.7 % (24.0-44.0); MONO # 0.6 10^3/uL (0.0-0.8); MONO % 9.6 % (2.0-8.0); NEUTROPHILS # 3.7 10^3/uL (1.5-8.5); NEUTROPHILS % 57.5 % (36.0-66.0); PLATELET COUNT, AUTOMATED 252 10^3/uL (150-450)
[2025-02-18 18:42] LABS: ALT/SGPT 40 U/L (7.0-40); AST/SGOT 106 U/L (<34); CALCIUM LEVEL 8.6 MG/DL (8.5-10.1); CARBON DIOXIDE LEVEL 23 MMOL/L (20-31); CHLORIDE LEVEL 107 MMOL/L (98-107); CPK CREATINE PHOSPHOKINASE 2954 U/L (46-171); CREATININE FOR GFR 0.97 MG/DL (0.70-1.30); GLOMERULAR FILTRATION RATE > 90.0 (>60); MAGNESIUM LEVEL 2.0 MG/DL (1.8-2.4); PHOSPHORUS LEVEL 1.8 MG/DL (2.5-4.9); POTASSIUM SERUM 4.1 MMOL/L (3.5-5.1); SODIUM LEVEL 140 MMOL/L (136-145)
[2025-02-18] MEDS: PANTOPRAZOLE 40MG VIAL IV SCH (18:51)
[2025-02-18 20:06] LABS: FREE T4 1.32 NG/DL (0.89-1.76); THYROXINE (T4) 8.3 UG/DL (4.5-10.9)
[2025-02-18] MEDS: ENOXAPARIN 40 MG/0.4 ML SYRINGE (J1650 PER 10MG) SC SCH (21:11)
[2025-02-18] MEDS: POTASSIUM PHOSPHATE INJ 15 MMOL in D5W 250 ML IV ONE (21:12)
[2025-02-19] VITALS (22 sets, daily range): BP systolic 94–171; BP diastolic 57–109; TEMP 93–102; O2SAT 97–100
[2025-02-19 01:11] LABS: CK-MB VALUE MASS 17.4 NG/ML (<3.6)
[2025-02-19 01:55] LABS: ALT/SGPT 35 U/L (7.0-40); AST/SGOT 92 U/L (<34); CALCIUM LEVEL 8.6 MG/DL (8.5-10.1); CARBON DIOXIDE LEVEL 23 MMOL/L (20-31); CHLORIDE LEVEL 108 MMOL/L (98-107); CPK CREATINE PHOSPHOKINASE 2722 U/L (46-171); CREATININE FOR GFR 0.86 MG/DL (0.70-1.30); GLOMERULAR FILTRATION RATE > 90.0 (>60); MB/CK RELATIVE INDEX 0.63 (< OR =4); POTASSIUM SERUM 3.6 MMOL/L (3.5-5.1); SODIUM LEVEL 142 MMOL/L (136-145)
[2025-02-19] MEDS: LR 1,000 ML IV ONE (02:09)
[2025-02-19 05:51] LABS: ALT/SGPT 34 U/L (7.0-40); AST/SGOT 80 U/L (<34); CALCIUM LEVEL 8.5 MG/DL (8.5-10.1); CARBON DIOXIDE LEVEL 25 MMOL/L (20-31); CHLORIDE LEVEL 107 MMOL/L (98-107); CREATININE FOR GFR 0.90 MG/DL (0.70-1.30); GLOMERULAR FILTRATION RATE > 90.0 (>60); POTASSIUM SERUM 3.3 MMOL/L (3.5-5.1); SODIUM LEVEL 142 MMOL/L (136-145); TRIGLYCERIDES LEVEL 82 MG/DL (<150)
[2025-02-19 08:03] LABS: PHOSPHORUS LEVEL 2.0 MG/DL (2.5-4.9)
[2025-02-19] MEDS: KCL 10MEQ/100ML SWI (KRUN) 10 MEQ in IV 1 EA IV SCH (08:04)
[2025-02-19] MEDS: MIDAZOLAM 5 MG/ML 1 ML VIAL IV ONE (15:50)
[2025-02-19] MEDS: ACETAMINOPHEN 325 MG/10.15 ML UDC PO PRN (16:10)
[2025-02-19] MEDS: MAG SULF 1GM/100ML (MAG RUN) 1 GM in IV 1 EA IV ONE (16:36)
[2025-02-19] MEDS: HALOPERIDOL LACTATE 5 MG/ML VIAL IV SCH (16:37)
[2025-02-19] MEDS: D5W/LR 1,000 ML IV SCH (18:31)
[2025-02-19 19:38] LABS: ALT/SGPT 35 U/L (7.0-40); AST/SGOT 81 U/L (<34); CALCIUM LEVEL 8.3 MG/DL (8.5-10.1); CARBON DIOXIDE LEVEL 26 MMOL/L (20-31); CHLORIDE LEVEL 107 MMOL/L (98-107); CPK CREATINE PHOSPHOKINASE 1875 U/L (46-171); CREATININE FOR GFR 0.95 MG/DL (0.70-1.30); GLOMERULAR FILTRATION RATE > 90.0 (>60); MAGNESIUM LEVEL 1.9 MG/DL (1.8-2.4); PHOSPHORUS LEVEL 2.5 MG/DL (2.5-4.9); POTASSIUM SERUM 4.1 MMOL/L (3.5-5.1); SODIUM LEVEL 140 MMOL/L (136-145)
[2025-02-19] MEDS: MIDAZOLAM INJ 2 MG/2 ML VIAL IV PRN (20:18)
[2025-02-20] VITALS (27 sets, daily range): BP systolic 92–145; BP diastolic 56–94; TEMP 97.1–100.8; O2SAT 97–100
[2025-02-20 06:01] LABS: BASO # 0.1 10^3/uL (0.0-0.2); BASO % 0.6 % (0.0-1.0); EOS # 0.2 10^3/uL (0.0-0.5); EOS % 3.0 % (0.0-3.0); LYMPH # 1.6 10^3/uL (1.5-5.0); LYMPH % 20.9 % (24.0-44.0); MONO # 0.7 10^3/uL (0.0-0.8); MONO % 8.9 % (2.0-8.0); NEUTROPHILS # 5.1 10^3/uL (1.5-8.5); NEUTROPHILS % 66.2 % (36.0-66.0); PLATELET COUNT, AUTOMATED 222 10^3/uL (150-450)
[2025-02-20 06:44] LABS: ALT/SGPT 29 U/L (7.0-40); AST/SGOT 68 U/L (<34); CALCIUM LEVEL 8.4 MG/DL (8.5-10.1); CARBON DIOXIDE LEVEL 24 MMOL/L (20-31); CHLORIDE LEVEL 109 MMOL/L (98-107); CPK CREATINE PHOSPHOKINASE 1349 U/L (46-171); CREATININE FOR GFR 0.98 MG/DL (0.70-1.30); GLOMERULAR FILTRATION RATE > 90.0 (>60); MAGNESIUM LEVEL 2.0 MG/DL (1.8-2.4); PHOSPHORUS LEVEL 3.8 MG/DL (2.5-4.9); POTASSIUM SERUM 4.0 MMOL/L (3.5-5.1); SODIUM LEVEL 144 MMOL/L (136-145); TRIGLYCERIDES LEVEL 127 MG/DL (<150)
[2025-02-20] MEDS ORDERED: HOME MED LIST COMPLETE! XX SCH (14:20)
[2025-02-20] MEDS: LR 1,000 ML IV SCH (18:49)
[2025-02-21] VITALS (26 sets, daily range): BP systolic 97–144; BP diastolic 53–93; TEMP 99.7–100.8; O2SAT 90–100
[2025-02-21 05:46] LABS: BASO # 0.0 10^3/uL (0.0-0.2); BASO % 0.4 % (0.0-1.0); EOS # 0.4 10^3/uL (0.0-0.5); EOS % 4.8 % (0.0-3.0); LYMPH # 1.2 10^3/uL (1.5-5.0); LYMPH % 15.6 % (24.0-44.0); MONO # 0.7 10^3/uL (0.0-0.8); MONO % 9.9 % (2.0-8.0); NEUTROPHILS # 5.1 10^3/uL (1.5-8.5); NEUTROPHILS % 68.5 % (36.0-66.0); PLATELET COUNT, AUTOMATED 214 10^3/uL (150-450)
[2025-02-21 06:12] LABS: ALT/SGPT 63 U/L (7.0-40); AST/SGOT 304 U/L (<34); CALCIUM LEVEL 8.1 MG/DL (8.5-10.1); CARBON DIOXIDE LEVEL 24 MMOL/L (20-31); CHLORIDE LEVEL 106 MMOL/L (98-107); CREATININE FOR GFR 0.88 MG/DL (0.70-1.30); GLOMERULAR FILTRATION RATE > 90.0 (>60); POTASSIUM SERUM 4.0 MMOL/L (3.5-5.1); SODIUM LEVEL 140 MMOL/L (136-145); TRIGLYCERIDES LEVEL 116 MG/DL (<150)
[2025-02-21] MEDS: MIDAZOLAM 5 MG/ML 1 ML VIAL IV STA (07:55)
[2025-02-21] MEDS: OLANZapine 10 MG TAB PO ONE (10:43)
[2025-02-21 11:14] LABS: KETONE, URINE AUTO RFX NEGATIVE (NEGATIVE); MUCUS, URINE RFX SMALL (NEGATIVE); NITRITE, URINE AUTO RFX NEGATIVE (NEGATIVE); RBC, URINE AUTO RFX 20 /HPF (0-3); SQUAM EPITHELIAL CELL UR AURFX 0 /HPF (0-6); WBC, URINE AUTO RFX 7 /HPF (0-3)
[2025-02-21 11:22] LABS: LEUKOCYTE ESTERASE UR AUTO RFX TRACE (NEGATIVE)
[2025-02-21] MEDS: ACETAMINOPHEN *IV* 1,000 MG in IV 1 EA IV PRN (15:04)
[2025-02-21] MEDS: PIPERACILLIN/TAZOBACTAM SOD 3.375 GM in DEXTROSE 5% (D5W) ADV/MINI-BAG 50 ML IV SCH (15:43)
[2025-02-21] MEDS: **PLEASE UPDATE HEIGHT AND WEIGHT XX SCH (16:07)
[2025-02-21] MEDS: OLANZapine INTRAMUSCULAR 10MG VIAL IM SCH (19:21)
[2025-02-21] MEDS ORDERED: OLANZapine 10 MG TAB PO SCH (21:00)
[2025-02-22] VITALS (20 sets, daily range): BP systolic 105–135; BP diastolic 58–86; TEMP 97.3–100.4; O2SAT 94–98
[2025-02-22] MEDS: OLANZapine INTRAMUSCULAR 10MG VIAL IM PRN (02:33)
[2025-02-22 06:11] LABS: BASO # 0.0 10^3/uL (0.0-0.2); BASO % 0.2 % (0.0-1.0); EOS # 0.1 10^3/uL (0.0-0.5); EOS % 0.8 % (0.0-3.0); LYMPH # 0.8 10^3/uL (1.5-5.0); LYMPH % 9.0 % (24.0-44.0); MONO # 1.0 10^3/uL (0.0-0.8); MONO % 11.2 % (2.0-8.0); NEUTROPHILS # 7.1 10^3/uL (1.5-8.5); NEUTROPHILS % 78.4 % (36.0-66.0); PLATELET COUNT, AUTOMATED 258 10^3/uL (150-450)
[2025-02-22 06:36] LABS: ALT/SGPT 125 U/L (7.0-40); AST/SGOT 489 U/L (<34); CALCIUM LEVEL 9.5 MG/DL (8.5-10.1); CARBON DIOXIDE LEVEL 21 MMOL/L (20-31); CHLORIDE LEVEL 108 MMOL/L (98-107); CREATININE FOR GFR 0.84 MG/DL (0.70-1.30); GLOMERULAR FILTRATION RATE > 90.0 (>60); MAGNESIUM LEVEL 2.0 MG/DL (1.8-2.4); POTASSIUM SERUM 4.3 MMOL/L (3.5-5.1); SODIUM LEVEL 143 MMOL/L (136-145)
[2025-02-22] MEDS: ACETAMINOPHEN *IV* 1,000 MG in IV 1 EA IV ONE (08:13)
[2025-02-22] MEDS: OLANZapine 10 MG TAB PO SCH (08:38)
[2025-02-23] VITALS: BP 122/69; TEMP 98; O2SAT 96
[2025-02-23 04:00] VITALS: BP 100/55; TEMP 98.9; O2SAT 98
[2025-02-23 05:20] LABS: BASO # 0.1 10^3/uL (0.0-0.2); BASO % 0.7 % (0.0-1.0); EOS # 0.4 10^3/uL (0.0-0.5); EOS % 5.4 % (0.0-3.0); LYMPH # 1.6 10^3/uL (1.5-5.0); LYMPH % 21.4 % (24.0-44.0); MONO # 0.8 10^3/uL (0.0-0.8); MONO % 11.0 % (2.0-8.0); NEUTROPHILS # 4.6 10^3/uL (1.5-8.5); NEUTROPHILS % 60.8 % (36.0-66.0); PLATELET COUNT, AUTOMATED 314 10^3/uL (150-450)
[2025-02-23 05:45] LABS: ALT/SGPT 136 U/L (7.0-40); AST/SGOT 317 U/L (<34); CALCIUM LEVEL 9.8 MG/DL (8.5-10.1); CARBON DIOXIDE LEVEL 26 MMOL/L (20-31); CHLORIDE LEVEL 106 MMOL/L (98-107); CREATININE FOR GFR 0.91 MG/DL (0.70-1.30); GLOMERULAR FILTRATION RATE > 90.0 (>60); MAGNESIUM LEVEL 2.3 MG/DL (1.8-2.4); POTASSIUM SERUM 4.6 MMOL/L (3.5-5.1); SODIUM LEVEL 144 MMOL/L (136-145)
[2025-02-23 06:20] LABS: HEPATITIS C VIRUS ABY INDEX < 0.02 INDEX (<0.8)
[2025-02-23 08:00] VITALS: BP 123/83; TEMP 97.3; O2SAT 99
[2025-02-23] MEDS: DOXYCYCLINE HYCLATE 100 MG TABLET PO SCH (09:02)
[2025-02-23] MEDS ORDERED: CEFP200T PO (10:51)
[2025-02-23] MEDS ORDERED: PANT40TA29 PO (10:51)
[2025-02-23] MEDS ORDERED: DOXY100T PO (10:51)
[2025-02-23] MEDS ORDERED: OLAN1TAB20 PO (10:51)
[2025-02-23] MEDS: PANTOPRAZOLE 40MG TAB PO SCH (11:06)
[2025-02-23] MEDS: CEFPODOXIME PROXETIL 200 MG TABLET PO SCH (11:06)
== END 2025-02-23 12:15 | DRG 133 ==
LOC: M ICU 14:56
PROVIDERS: ADMIT Internal Medicine Pulmonary Disease; ATTEND Internal Medicine Pulmonary Disease
PROC: 0BH17EZ Insertion of Endotracheal Airway into Trachea, Via Natural or Artificial Opening (ICD-10-PCS; principal; 2025-02-18)
PROC: 5A1945Z Respiratory Ventilation, 24-96 Consecutive Hours (ICD-10-PCS; 2025-02-18)
DX: J96.90 Respiratory failure, unspecified, unspecified whether with hypoxia or hypercapnia (principal); M62.82 Rhabdomyolysis; E83.39 Other disorders of phosphorus metabolism; Z78.1 Physical restraint status; F31.64 Bipolar disorder, current episode mixed, severe, with psychotic features; T14.91XA Suicide attempt, initial encounter; E87.6 Hypokalemia; N39.0 Urinary tract infection, site not specified; Z91.51 Personal history of suicidal behavior; F15.10 Other stimulant abuse, uncomplicated; F12.10 Cannabis abuse, uncomplicated; F10.10 Alcohol abuse, uncomplicated; F60.3 Borderline personality disorder; R74.01 Elevation of levels of liver transaminase levels

== ENCOUNTER 2025-02-23 10:21 | Inpatient (IN) | payer OTHER ==
[~2025-02-23] VITALS: Ht 177.8 cm; Wt 77.7 kg
[2025-02-23] MEDS ORDERED: CEFP200T PO (10:51)
[2025-02-23] MEDS ORDERED: DOXY100T PO (10:51)
[2025-02-23] MEDS ORDERED: PANT40TA29 PO (10:51)
[2025-02-23] MEDS ORDERED: OLAN1TAB20 PO (10:51)
[2025-02-23] MEDS ORDERED: MAALOX 30 ML SUSP *UDC PO PRN (11:35)
[2025-02-23] MEDS ORDERED: ACETAMINOPHEN 325 MG TAB PO PRN (11:35)
[2025-02-23] MEDS ORDERED: MOM 30 ML SUSPENSION UDC PO PRN (11:35)
[2025-02-23] MEDS ORDERED: OLANZapine 5 MG TAB PO PRN (11:35)
[2025-02-23 12:35] VITALS: BP 132/81; TEMP 97.6; O2SAT 100
[2025-02-23] MEDS: NICOTINE 14 MG/24 HR TRANSDERMAL TD SCH (14:49)
[2025-02-23] MEDS ORDERED: HOME MED LIST COMPLETE! XX SCH (15:00)
[2025-02-23] MEDS: NICOTINE 21 MG/24 HR 1 EA TRANSDERMAL TD SCH (17:39)
[2025-02-23] MEDS: IBUPROFEN 400 MG TAB PO PRN (20:05)
[2025-02-23] MEDS: CEFPODOXIME PROXETIL 200 MG TABLET PO SCH (20:05)
[2025-02-23] MEDS: DOXYCYCLINE HYCLATE 100 MG TABLET PO SCH (20:05)
[2025-02-24 06:39] VITALS: BP 135/73; TEMP 97.8; O2SAT 98
[2025-02-24] MEDS: OLANZapine 10 MG TAB PO SCH (13:19)
[2025-02-24] MEDS: traZODone 50 MG TAB PO PRN (20:17)
[2025-02-24] MEDS: CHLORASEPTIC SPRAY MT PRN (20:18)
[2025-02-25 06:42] VITALS: BP 117/71; TEMP 98.4; O2SAT 100
[2025-02-25] MEDS: LORazepam 1 MG TAB PO PRN (14:39)
[2025-02-25] MEDS: HALOPERIDOL 5 MG TAB PO PRN (15:17)
[2025-02-26 06:28] VITALS: BP 119/62; TEMP 98.5; O2SAT 98
[2025-02-26] MEDS: DIVALPROEX 500 MG *ER* TAB PO SCH (20:32)
[2025-02-27] MEDS ORDERED: OLAN1TAB20 PO (10:04)
[2025-02-27] MEDS ORDERED: DEPA500T2 PO (10:04)
== END 2025-02-27 13:08 | disposition home or self-care (01) | DRG 753 ==
LOC: M PSY 12:35
PROVIDERS: ADMIT Internal Medicine; ATTEND Internal Medicine
DX: F31.2 Bipolar disorder, current episode manic severe with psychotic features (principal); F15.20 Other stimulant dependence, uncomplicated; F41.1 Generalized anxiety disorder; F12.20 Cannabis dependence, uncomplicated; N39.0 Urinary tract infection, site not specified; F17.290 Nicotine dependence, other tobacco product, uncomplicated; Z59.00 Homelessness unspecified; Z56.0 Unemployment, unspecified; Z91.51 Personal history of suicidal behavior